=== PATIENT | male | born 1960 | race Caucasian/White ===

== ENCOUNTER 2018-07-23 20:41 | Emergency (ER) | payer MEDICAID, OTHER ==
[~2018-07-23] VITALS: Ht 188 cm; Wt 118.0 kg
[~2018-07-23 20:41] MED LIST: CYCL-1 PO; FAMO40TA73 PO; HYDR-4383 PO; IBUP-1984 PO; ONDA4TAB6 PO
[2018-07-23] MEDS ORDERED: LORazepam 2 mg/ml vial IV ONE ×2 (21:25→22:35)
[2018-07-23] MEDS ORDERED: cloNIDine 0.1 mg tablet PO ONE ×2 (21:25→22:35)
[2018-07-23] MEDS ORDERED: pantoprazole 40 MG vial IV ONE (21:50)
[2018-07-23] MEDS ORDERED: ondansetron/PF 4mg/2ml inj IV ONE (21:50)
[2018-07-23 21:54] LABS: BASOPHILS % (AUTO) 0.5 % (0-1); EOSINOPHILS # (AUTO) 0.2 X10'3 (0-0.9); EOSINOPHILS % (AUTO) 2.1 % (0-6); HEMOGLOBIN 15.3 g/dl (14.0-17.9); LYMPHOCYTES # (AUTO) 1.6 X10'3 (1.1-4.8); LYMPHOCYTES % (AUTO) 22.4 % (21-51); MEAN CORPUSCULAR HEMOGLOBIN 30.7 PG (27.0-31.0); MEAN CORPUSCULAR VOLUME 90.3 FL (78-98); MEAN PLATELET VOLUME 10.2 FL (7.4-10.4); MONOCYTES # (AUTO) 0.5 X10'3 (0-0.9); PLATELET COUNT 162 X10'3 (140-440); RED BLOOD COUNT 4.99 X10'6 (4.70-6.10); RED CELL DISTRIBUTION WIDTH 12.7 % (11.5-14.5); WHITE BLOOD COUNT 7.3 X10'3 (4.5-11.0)
[2018-07-23 22:15] LABS: CLARITY,URINE CLEAR (Clear); COLOR,URINE YELLOW (Yellow); GLUCOSE, URINE NEGATIVE (Neg); KETONES,URINE NEGATIVE (Neg); LEUKOCYTE ESTERASE ,URINE NEGATIVE (Neg); NITRITES, URINE NEGATIVE (Neg); OCCULT BLOOD,URINE NEGATIVE (Neg); PH,URINE 6.5 (4.8-8.0); PROTEIN,URINE NEGATIVE (Neg); UROBILINOGEN,URINE 0.2 E.U/dL (0.2-1.0)
[2018-07-23 22:16] LABS: ALANINE AMINOTRANSFERASE 44 U/L (12-78); ALBUMIN 4.4 G/DL (3.4-5.0); ALBUMIN/GLOBULIN RATIO 1.3 (1.1-1.5); ALKALINE PHOSPHATASE 83 IU/L (46-116); ANION GAP 10 (8-16); ASPARTATE AMINO TRANSFERASE 30 U/L (10-37); BILIRUBIN,TOTAL 0.6 MG/DL (0.1-1.0); BLOOD UREA NITROGEN 14 MG/DL (7-18); BUN/CREATININE RATIO 12.1 (5.4-32.0); CALCIUM 9.8 MG/DL (8.5-10.1); CHLORIDE 102 MMOL/L (99-107); CREATININE 1.16 MG/DL (0.60-1.10); GLUCOSE 122 MG/DL (70-104); LIPASE 153 U/L (73-393); POTASSIUM 3.4 MMOL/L (3.5-5.1); SODIUM 139 MMOL/L (135-145); TOTAL CARBON DIOXIDE 27.3 MMOL/L (24-32); TOTAL PROTEIN 7.8 G/DL (6.4-8.2); eGFR 65 ML/MIN
[2018-07-23 22:20] LABS: UA COLLECTION TYPE CLN CATCH MIDSTREAM
[2018-07-23] MEDS ORDERED: famotidine/PF 10 mg/ml inj IV ONE (22:30)
[2018-07-23 22:52] VITALS: BP 146/79
[2018-07-23] MEDS ORDERED: OMEP20TA23 PO (23:51)
[2018-07-23] MEDS ORDERED: CAT2P TD (23:51)
[2018-07-23] MEDS ORDERED: LORA1TAB PO (23:51)
[2018-07-23] MEDS ORDERED: cloNIDine 0.2 MG/24 HR patch (7 day patch) TD ONE (23:55)
== END 2018-07-24 00:16 | disposition home or self-care (01) ==
LOC: ER 20:41
DX: R10.11 Right upper quadrant pain (principal); R03.0 Elevated blood-pressure reading, without diagnosis of hypertension; R42 Dizziness and giddiness; R11.10 Vomiting, unspecified; R51 Headache; R12 Heartburn; R14.0 Abdominal distension (gaseous); Z88.6 Allergy status to analgesic agent; Z91.013 Allergy to seafood; Z91.018 Allergy to other foods; Z79.899 Other long term (current) drug therapy; Z87.19 Personal history of other diseases of the digestive system
CPT/HCPCS: 36415; 74176; 76700; 80053; 81003; 82140; 83690; 84484; 85025; 93005; 96374; 96375; 96376; 99284; C9113; J2060; J2405; J3490

== ENCOUNTER 2019-02-15 14:46 | Emergency (ER) | payer OTHER, BC ==
[~2019-02-15] VITALS: Ht 182.9 cm; Wt 120.5 kg
[~2019-02-15 14:46] MED LIST changes: +CAT2P TD; +OMEP20TA23 PO
[2019-02-15] MEDS: epiNEPHrine 1 mg/ml inj IM STA (15:19)
[2019-02-15] MEDS: methylPREDNISolone sod succ 125mg/2ml vial IV ONE (15:26)
[2019-02-15] MEDS: famotidine/PF 10 mg/ml inj IV ONE (15:26)
[2019-02-15] MEDS: diphenhydrAMINE 50 mg/ml inj IV ONE (15:27)
[2019-02-15] MEDS ORDERED: PRED20TA PO (16:14)
[2019-02-15 16:36] VITALS: BP 122/73
== END 2019-02-15 16:37 | disposition home or self-care (01) ==
LOC: ER 14:47
DX: S10.86XA Insect bite of other specified part of neck, initial encounter (principal); L53.8 Other specified erythematous conditions; T78.40XA Allergy, unspecified, initial encounter; I10 Essential (primary) hypertension; G89.29 Other chronic pain; Z87.442 Personal history of urinary calculi; Z98.890 Other specified postprocedural states; Z88.5 Allergy status to narcotic agent; Z79.899 Other long term (current) drug therapy; W57.XXXA Bitten or stung by nonvenomous insect and other nonvenomous arthropods, initial encounter; Y93.89 Activity, other specified; Y92.89 Other specified places as the place of occurrence of the external cause; Y99.9 Unspecified external cause status
CPT/HCPCS: 96372; 96374; 96375; 99283; J0171; J1200; J2930; J3490

== ENCOUNTER 2019-06-03 08:56 | Emergency (ER) | payer BC, MEDICARE ==
[~2019-06-03] VITALS: Ht 182.9 cm; Wt 119.0 kg
--- NOTE | 2019-06-03 09:13 | NUR ---
DR PINTO INFORMED OF PT FALL AND RIB/CHEST WALL PAIN, CANCEL CHEST XRAY AND ORDERS TO FOLLOW FOR CT CHEST.
[2019-06-03] MEDS ORDERED: ondansetron/PF 4mg/2ml inj IV ONE ×2 (09:30→11:10)
[2019-06-03] MEDS ORDERED: morphine 4 MG/ML inj SYRINge IV ONE (09:30)
--- NOTE | 2019-06-03 09:31 | NUR ---
PT REPORTING 10/10 PAIN, MILLIE UNAVAILABLE FOR ORDERS, RECEIVED VERBAL ORDER FROM EDUARDO MURRY 4 MG IV ZOFRAN, 4 MG IV MORPHINE, 50 MG IV BENADRYL DUE PREVIOUS REACTIONS TO BENADRYL, ALSO CT CHEST NO CONTRAST
[2019-06-03] MEDS ORDERED: diphenhydrAMINE 50 mg/ml inj IV ONE (09:35)
[2019-06-03] MEDS ORDERED: iohexol 300mg/ml 100ml inj. ONE (09:45)
[2019-06-03] MEDS: fentaNYL/PF 50MCG/1 ML 2ML syringe IV PRN ×2 (09:45→10:24)
--- NOTE | 2019-06-03 09:51 | NUR ---
PT TO CT
[2019-06-03 10:07] LABS: BASOPHILS % (AUTO) 0.3 % (0-1); EOSINOPHILS # (AUTO) 0.1 X10'3 (0-0.9); EOSINOPHILS % (AUTO) 2.1 % (0-6); HEMATOCRIT 44.3 % (42.0-52.0); HEMOGLOBIN 15.4 g/dl (14.0-17.9); LYMPHOCYTES # (AUTO) 1.1 X10'3 (1.1-4.8); LYMPHOCYTES % (AUTO) 16.6 % (21-51); MEAN CORPUSCULAR HEMOGLOBIN 31.6 PG (27.0-31.0); MEAN CORPUSCULAR HGB CONC 34.7 g/dL (33.0-36.5); MEAN CORPUSCULAR VOLUME 91.1 FL (78-98); MEAN PLATELET VOLUME 9.6 FL (7.4-10.4); MONOCYTES # (AUTO) 0.4 X10'3 (0-0.9); MONOCYTES % (AUTO) 6.8 % (2-12); NEUTROPHILS # (AUTO) 4.9 X10'3 (1.8-7.7); NEUTROPHILS % (AUTO) 74.2 % (42-75); PLATELET COUNT 173 X10'3 (140-440); RED BLOOD COUNT 4.86 X10'6 (4.70-6.10); RED CELL DISTRIBUTION WIDTH 12.9 % (11.5-14.5); WHITE BLOOD COUNT 6.6 X10'3 (4.5-11.0)
[2019-06-03 10:33] LABS: CKMB RELATIVE INDEX 0.6 RATIO (0-2.5); CREATINE KINASE 283 U/L (39-308); ETHANOL 0.027 GM/DL (0.0-0.010); TROPONIN I < 0.04 NG/ML (0.0-0.05)
[2019-06-03] MEDS ORDERED: HYDR-4353 PO (10:54)
[2019-06-03] MEDS ORDERED: ONDA4TAB6 PO (10:54)
[2019-06-03] MEDS ORDERED: HYDROcodone/acetaminophen 10/325mg tab PO ONE (11:10)
[2019-06-03 11:32] VITALS: BP 144/79
== END 2019-06-03 11:35 | disposition home or self-care (01) ==
LOC: ER 08:56
DX: S06.0X0A Concussion without loss of consciousness, initial encounter (principal); S22.42XA Multiple fractures of ribs, left side, initial encounter for closed fracture; F10.920 Alcohol use, unspecified with intoxication, uncomplicated; R10.32 Left lower quadrant pain; I10 Essential (primary) hypertension; G89.29 Other chronic pain; M10.9 Gout, unspecified; Z98.890 Other specified postprocedural states; Z88.5 Allergy status to narcotic agent; Z79.899 Other long term (current) drug therapy; W18.39XA Other fall on same level, initial encounter; Y93.89 Activity, other specified; Y92.89 Other specified places as the place of occurrence of the external cause; Y99.9 Unspecified external cause status; Y90.9 Presence of alcohol in blood, level not specified
CPT/HCPCS: 36415; 70450; 71260; 74177; 80320; 82550; 82553; 84484; 85025; 96374; 96375; 96376; 99284; J1200; J2270; J2405; J3010; Q9967